=== PATIENT | male | born 1945 | race Caucasian/White ===

== ENCOUNTER 2018-01-04 01:33 | Emergency (ER) | payer MEDICARE, OTHER, SELFPAY ==
[2018-01-04 01:41] VITALS: BP 154/80; PULSE 61; RESP 24; TEMP 36.6; O2SAT 94; BMI 25.0
--- NOTE | 2018-01-04 01:50 | XR_ITS ---
XR ribs RT min 3V w CXR1V HISTORY: Right-sided rib pain following injury ITS.REASON: S/P FALL ORDERING PHYSICIAN: Wang Martínez MD PATIENT AGE: 72 years COMPARISON: None FINDINGS: A frontal view of the chest shows borderline cardiomegaly without failure. No evidence of pneumothorax. Surgical clips are present in the thyroid area. Multiple views of the right ribs were obtained. There are nondisplaced fractures of the right sixth and seventh ribs. There may be a nondisplaced fracture the right ninth rib as there is some cortical lobularity of the ninth rib anterolaterally. IMPRESSION: Nondisplaced fractures of the right sixth and seventh ribs and possibly the ninth rib.
--- NOTE | 2018-01-04 02:55 | HMH.EDGENADL ---
ED Disposition Clinical Impression: Rib fracture Qualifiers: Encounter type: initial encounter Rib fracture type: single rib Fracture type: closed Laterality: right Qualified Code(s): S22.31XA - Fracture of one rib, right side, initial encounter for closed fracture Disposition: Home, Self-Care Condition on Discharge: Good Instructions: DI for Rib Fracture Additional Instructions: call pcp for follow up and recheck if any problems - Critical Care Critical Care Time: No Attestation: On 01/04/18, the high probability of a clinically significant, sudden or life threatening deterioration of the following system(s) required my full and direct attention, intervention and personal management. The time I documented below is in addition to time spent performing reported procedures but includes the following listed in this critical care notation. Medical Decision Making - Medical Records Medical records reviewed: Yes: I reviewed the patient's medical records. Vital Signs: 01/04/18 01:41 Temperature 97.9 F Temperature Source Oral Pulse Rate [Right Brachial] 61 Respiratory Rate 24 Blood Pressure [Right Arm] 154/80 Blood Pressure Mean [Right Arm] 104 Blood Pressure Source [Right Arm] Automatic Cuff Blood Pressure Position [Right Arm] Supine 02 Sat by Pulse Oximetry 94 L Oxygen Delivery Method Room Air - Lab Data Lab results reviewed: Yes: I reviewed the patient's lab results. Orders (Tests/Meds): ORDERS Category Date Time Status XR ribs RT min 3V w CXR1V Stat Exams 01/04/18 01:50 Taken - Radiology Data #1 Image(s): Other (rib) Image Reviewed: Yes I reviewed the patient's radiology image Preliminary Findings: Abnormal - Brice Inquiry Pt receiving controlled substance: No General Adult HPI - General Chief complaint: PAIN Stated complaint: AO 01/04/18 fell injury to right rib cage Time Seen by Provider: 01/04/18 02:55 Mode of Arrival: Family Vehicle Source of Information: Patient, Relative, Medical Record Limitations: No Limitations Description of Symptoms (Recalled from ER Triage Doc. 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 STATES HE HAS HAD A 6 PACK OF BEER AND DROVE SELF TO ED. FELL 1 WEEK AGO AND BROKE HIS NOSE - History of Present Illness HPI narrative: fall tonight with rt rib injury but no abd pain and no neck pain Onset (ago): hour(s) Location: chest Radiation: non-radiation Severity: moderate - Related Data Allergies Allergy/AdvReac Type Severity Reaction Status Date / Time infliximab [From REMICADE] Allergy Unknown Verified 01/04/18 01:49 [facility] History I have reviewed the patient's past medical history: Yes Medical History: Denies:: Cancer, Diabetes Mellitus Type 1, Diabetes Mellitus Type 2, MRSA Amputation: No Fractures: No - Social History Smoking Status: Former smoker Alcohol Intake: current Alcohol Intake Frequency:: a few times a month - Psychiatric History Expresses thoughts of harming self/others: None Suicide Plan Description: No Plan ROS Obtained: Yes All systems reviewed & no additional complaints - Constitutional Constitutional: Denies fever(s) - Eyes Eyes: Denies change in vision - ENT Ears, Nose, Mouth, and Throat: Denies sore throat - Cardiovascular Cardiovascular: Reports chest pain, Reports dyspnea - Respiratory Respiratory: No chest congestion - Gastrointestinal Gastrointestingal: Denies: abdominal pain - Musculoskeletal Musculoskeletal: Denies joint pain, Denies back pain - Integumentary/Breasts Skin/Breast: Denies rash - Neurologic Neurologic: Denies seizure-like activity Physical Exam - General General appearance: alert, in no apparent distress - Head Head exam: normocephalic - Eye Eye exam: Present: PERRL, EOMI - ENT ENT exam: Present: mucous membranes moist - Neck Neck exam: Present: trachea midline - Chest Chest inspection: Present: symmetric chest wall rise, tenderness - Res
--- NOTE | 2018-01-04 02:58 | ED_ITS ---
ED Disposition Clinical Impression: Rib fracture Qualifiers: Encounter type: initial encounter Rib fracture type: single rib Fracture type: closed Laterality: right Qualified Code(s): S22.31XA - Fracture of one rib, right side, initial encounter for closed fracture Disposition: Home, Self-Care Condition on Discharge: Good Instructions: DI for Rib Fracture Additional Instructions: call pcp for follow up and recheck if any problems - Critical Care Critical Care Time: No Attestation: On 01/04/18, the high probability of a clinically significant, sudden or life threatening deterioration of the following system(s) required my full and direct attention, intervention and personal management. The time I documented below is in addition to time spent performing reported procedures but includes the following listed in this critical care notation. Medical Decision Making - Medical Records Medical records reviewed: Yes: I reviewed the patient's medical records. Vital Signs: 01/04/18 01:41 Temperature 97.9 F Temperature Source Oral Pulse Rate [Right Brachial] 61 Respiratory Rate 24 Blood Pressure [Right Arm] 154/80 Blood Pressure Mean [Right Arm] 104 Blood Pressure Source [Right Arm] Automatic Cuff Blood Pressure Position [Right Arm] Supine 02 Sat by Pulse Oximetry 94 L Oxygen Delivery Method Room Air - Lab Data Lab results reviewed: Yes: I reviewed the patient's lab results. Orders (Tests/Meds): ORDERS Category Date Time Status XR ribs RT min 3V w CXR1V Stat Exams 01/04/18 01:50 Taken - Radiology Data #1 Image(s): Other (rib) Image Reviewed: Yes I reviewed the patient's radiology image Preliminary Findings: Abnormal - Brice Inquiry Pt receiving controlled substance: No General Adult HPI - General Chief complaint: PAIN Stated complaint: AO 01/04/18 fell injury to right rib cage Time Seen by Provider: 01/04/18 02:55 Mode of Arrival: Family Vehicle Source of Information: Patient, Relative, Medical Record Limitations: No Limitations Description of Symptoms (Recalled from ER Triage Doc. 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 STATES HE HAS HAD A 6 PACK OF BEER AND DROVE SELF TO ED. FELL 1 WEEK AGO AND BROKE HIS NOSE - History of Present Illness HPI narrative: fall tonight with rt rib injury but no abd pain and no neck pain Onset (ago): hour(s) Location: chest Radiation: non-radiation Severity: moderate - Related Data Allergies Allergy/AdvReac Type Severity Reaction Status Date / Time infliximab [From REMICADE] Allergy Unknown Verified 01/04/18 01:49 [facility] History I have reviewed the patient's past medical history: Yes Medical History: Denies:: Cancer, Diabetes Mellitus Type 1, Diabetes Mellitus Type 2, MRSA Amputation: No Fractures: No - Social History Smoking Status: Former smoker Alcohol Intake: current Alcohol Intake Frequency:: a few times a month - Psychiatric History Expresses thoughts of harming self/others: None Suicide Plan Description: No Plan ROS Obtained: Yes All systems reviewed & no additional complaints - Constitutional Constitutional: Denies fever(s) - Eyes Eyes: Denies change in vision - ENT Ears, Nose, Mouth, and Throat: Denies sore throat - Cardiovascular Cardiovascular: Reports chest pain, Reports dys
[2018-01-04 03:24] VITALS: BP 142/84; PULSE 84; RESP 14; TEMP 37.1; O2SAT 98
== END 2018-01-04 03:32 | disposition home or self-care (01) ==
PROVIDERS: Emergency Provider Emergency Medicine; Family Provider Family Medicine
DX: S22.31XA Fracture of one rib, right side, initial encounter for closed fracture (principal); W19.XXXA Unspecified fall, initial encounter
CPT/HCPCS: 71101; 99281

== ENCOUNTER 2018-01-17 17:40 | Emergency (ER) | payer MEDICARE, OTHER, SELFPAY ==
[2018-01-17 17:55] VITALS: BP 142/94; PULSE 58; RESP 16; TEMP 37.1; O2SAT 96; BMI 25.0
--- NOTE | 2018-01-17 18:44 | PC.NURSE ---
1844: Triage nurse Serene alerted me to patient symptoms, history, exam and vitals. Daughter tells me she isn't sure why they were not kept in ER. Needs transfer back to ER. Report called to [facility] [employer] that triaged pt for decision.
[2018-01-17 18:47] VITALS: BP 189/109; PULSE 63; RESP 18; TEMP 36.8; O2SAT 98; BMI 25.0
[2018-01-17 19:12] VITALS: BP 168/94; PULSE 59; RESP 18; TEMP 36.6; O2SAT 99; BMI 22.4
--- NOTE | 2018-01-17 19:25 | HMH.EDGENADL ---
ED Disposition Condition on Discharge: Fair - Critical Care Critical Care Time: No <Jeff Bonner - Last Filed: 01/17/18 20:15> <Wang Martínez - Last Filed: 01/17/18 22:52> Clinical Impression: Peripheral edema, Elevated d-dimer Hypothyroidism Qualifiers: Hypothyroidism type: unspecified Qualified Code(s): E03.9 - Hypothyroidism, unspecified Anemia Qualifiers: Anemia type: unspecified type Qualified Code(s): D64.9 - Anemia, unspecified Disposition: Home, Self-Care Instructions: DI for Hypothyroidism Additional Instructions: call pcp in am for possible doppler Prescriptions: Levothyroxine Sodium [Synthroid 125mcg (0.125mg) tablet] 125 mcg PO DAILY #20 tab Referrals: Isatu Mosqueda MD [Primary Care Provider] - Attestation: On 01/17/18, the high probability of a clinically significant, sudden or life threatening deterioration of the following system(s) required my full and direct attention, intervention and personal management. The time I documented below is in addition to time spent performing reported procedures but includes the following listed in this critical care notation. Medical Decision Making - Brice Inquiry Pt receiving controlled substance: No - Radiology Data #1 Image(s): Chest Image Reviewed: Yes I reviewed the patient's radiology image Preliminary Findings: Normal/NAD <Jeff Bonner - Last Filed: 01/17/18 20:15> - Lab Data Result diagrams: 01/17/18 19:55 01/17/18 19:55 <Wang Martínez - Last Filed: 01/17/18 22:52> Vital Signs: 01/17/18 17:55 01/17/18 18:47 01/17/18 19:12 Temperature 98.8 F 98.2 F 97.9 F Temperature Source Tympanic Temporal Artery Scan Oral Pulse Rate [Right Radial] 58 L 63 59 L Respiratory Rate 16 18 18 Blood Pressure [Right Arm] 142/94 189/109 168/94 Blood Pressure Mean [Right Arm] 110 135 118 Blood Pressure Source [Right Arm] Automatic Cuff Automatic Cuff Blood Pressure Position [Right Arm] Sitting Supine 02 Sat by Pulse Oximetry 96 98 99 Oxygen Delivery Method Room Air Room Air Room Air - Lab Data Lab Results 01/17/18 19:44: Urine Color Yellow, Urine Appearance Clear, Urine pH 6.5, Ur Specific [place] 1.010, Urine Protein Negative, Urine Glucose (UA) Negative, Urine Ketones Negative, Urine Blood Negative, Urine Nitrate Negative, Urine Bilirubin Negative, Urine Urobilinogen 0.2, Ur Leukocyte Esterase Negative, Urine RBC None, Urine WBC None, Ur Squamous Epith Cells None, Urine Bacteria Trace 01/17/18 19:55: WBC 3.9 L, RBC 3.98 L, Hgb 10.4 L, Hct 36.8 L, MCV 92.4, MCH 26.2 L, MCHC 28.3 L, RDW 16.2, Plt Count 275, MPV 8.0, Neut % (Auto) 65.6, Lymph % (Auto) 21.6, [place] % (Auto) 6.6, Eos % (Auto) 5.4, Baso % (Auto) 0.8, Neut # (Auto) 2.6, Lymph # (Auto) 0.8, [place] # (Auto) 0.3, Eos # (Auto) 0.2, Baso # (Auto) 0.0 01/17/18 19:55: Sodium 137, Potassium 4.0, Chloride 100, Carbon Dioxide 28, Anion Gap 13.0, BUN 10, Creatinine 0.73, Estimated Creat Clear 76, Estimated GFR 106, Est GFR ( Amer) 128, Glucose 68 L, Calcium 8.1 L, Total Bilirubin 0.5, AST 77 H, ALT 43, Alkaline Phosphatase 360 H, Total Protein 7.6, Albumin 3.2 L, Globulin 4.4 H, Albumin/Globulin Ratio 0.7 L 01/17/18 19:55: B-Natriuretic Peptide 57 01/17/18 19:55: D-Dimer 1430 H* 01/17/18 19:55: Lactic Acid 0.6 01/17/18 19:55: TSH 83.59 H, Thyroxine (T4) 1.0 L - Radiology Data #1 no chf or effusions seen (Jeff Bonner) Medical Decision Narrative: 8:15 PM: At shift change, I have discussed the patient with Dr. Martínez, who will assume care of the patient at this time. I have discussed all clinical information including history, physical and diagnostic study results. Preliminary diagnoses based on information available at this point have been recorded by me. Controlled substance administration and critical care statement are also preliminary, as of the time of handoff. (Jeff Bonner) General Adult HPI - General Mode of Arrival: Wheelchair Limitations: No
--- NOTE | 2018-01-17 19:43 | XR_ITS ---
XR chest 2V HISTORY: Bilateral lower extremity swelling and edema ITS.REASON: edema ORDERING PHYSICIAN: Jeff Bonner MD PATIENT AGE: 72 years COMPARISON: 10/16/2013 FINDINGS: The cardiomediastinal silhouette and pulmonary vascularity are within normal limits. There is hyperinflation with attenuation of the peripheral pulmonary vessels consistent with obstructive chronic pulmonary disease. Surgical clips are present in the paratracheal region. There is tortuosity/ectasia of the descending thoracic aorta. Minimally displaced fractures are present involving the right sixth, seventh, and eighth ribs and ninth rib. No evidence of pneumothorax.. IMPRESSION: 1. No acute finding. 2. Subacute right-sided rib fractures. 3. COPD
[2018-01-17 20:14] LABS: Microscopic, Urine URINE MICROSCOPIC (MICROSCOPIC)
[2018-01-17 20:18] LABS: Appearance,Urine CLEAR (Clear); Bilirubin,Urine Negative (Negative); Blood, Urine Negative (Negative); Color,Urine YELLOW (Yellow); Glucose,Urine (UA) Negative (Negative); Ketones,Urine Negative (Negative); Leukocyte Esterase,Urine Negative (Negative); Nitrate,Urine Negative (Negative); PH,Urine 6.5 (5.0-8.5); Protein,Urine Negative (Negative); Urobilinogen,Urine 0.2 EU/dl (0.2)
[2018-01-17 20:22] LABS: Basophils % 0.8 % (0.1-2.0); Eosinophils # 0.2 K/mm3 (0.0-0.4); Eosinophils % 5.4 % (0.1-12.0); Hematocrit 36.8 % (42.0-52.0); Hemoglobin 10.4 g/dL (14.1-18.0); Lymphocytes # 0.8 K/mm3 (0.7-4.5); Lymphocytes % 21.6 K/mm3 (10-50); Mean Corpuscular HGB Conc 28.3 g/dL (31.8-35.4); Mean Corpuscular Hemoglobin 26.2 pg (27.0-31.2); Mean Corpuscular Volume 92.4 fl (80-94); Monocytes # 0.3 K/mm3 (0.1-1.0); Monocytes % 6.6 % (1.7-9.3); Neutrophils # 2.6 K/mm3 (1.8-7.8); Neutrophils % 65.6 % (37.0-80.0); Platelet Count 275 K/mm3 (142-424); Red Blood Count 3.98 M/mm3 (4.60-6.20); Red Cell Distribution Width 16.2 % (11.5-17.5); White Blood Count 3.9 K/mm3 (4.8-10.8)
[2018-01-17 20:51] LABS: Lactic Acid 0.6 mmol/L (0.4-2.0)
[2018-01-17 20:53] LABS: Bacteria,Urine Trace /lpf
[2018-01-17 20:55] LABS: Alanine Aminotransferase 43 U/L (12-78); Albumin Level 3.2 gm/dL (3.4-5.0); Albumin/Globulin Ratio 0.7 (1.1-1.8); Alkaline Phosphatase 360 U/L (46-116); Bilirubin,Total 0.5 mg/dL (0.2-1.0); Blood Urea Nitrogen 10 mg/dL (7-18); Calcium 8.1 mg/dL (8.5-10.1); Carbon Dioxide 28 mmol/L (21.0-32.0); Chloride 100 mmol/L (98-107); Creatinine Clearance Estimated 76 mL/min (0-300); Creatinine,Serum 0.73 mg/dL (0.70-1.30); Estimated Glomerular Filt Rate 106 ml/min (>60); GFR (African American) 128 ML/MIN (>60); Globulin 4.4 gm/dl (1.3-3.2); Glucose 68 mg/dL (74-106); Sodium 137 mmol/L (136-145); Total Protein,Serum 7.6 gm/dL (6.4-8.2)
[2018-01-17 20:56] LABS: D-Dimer 1430 (0-400)
[2018-01-17 20:58] LABS: Aspartate Amino Transferase 77 U/L (15-37)
[2018-01-17 22:27] LABS: Thyroid Stimulating Hormone 83.59 uIU/ml (0.358-3.740)
[2018-01-17 23:21] VITALS: BP 168/94; PULSE 61; RESP 16; TEMP 36.1; O2SAT 97
== END 2018-01-17 23:21 | disposition home or self-care (01) ==
LOC: UTC 18:07 → ER 18:53
PROVIDERS: Emergency Medicine; Emergency Provider Emergency Medicine; Family Provider Family Medicine; PCP Family Medicine
DX: R60.0 Localized edema (principal); E03.9 Hypothyroidism, unspecified; D64.9 Anemia, unspecified; I10 Essential (primary) hypertension; R79.89 Other specified abnormal findings of blood chemistry; Z87.891 Personal history of nicotine dependence; E16.2 Hypoglycemia, unspecified; R06.02 Shortness of breath
CPT/HCPCS: 71046; 80053; 81001; 83605; 83880; 84436; 84443; 85025; 85378; 96372; 99283

== ENCOUNTER → 2018-01-18 14:39 | Outpatient (CLI) | payer MEDICARE, OTHER, SELFPAY ==
--- NOTE | 2018-01-18 14:43 | NVE_ITS ---
Venous Exam Indications: 729.5 Pain in limb. 782.3 Edema. IMPRESSIONS No evidence of deep or superficial vein thrombosis involving the right lower extremity and left lower extremity History: Risk factors: Former tobacco use. Hypertension. Complete lower extremity venous duplex evaluation. Doppler flow study including spectral analysis, color and guerrero scale imaging. Location: Vascular laboratory. Patient status: Outpatient. CRITICAL FINDINGS - Reported to: Dr. Jt Nieto office - Read back and verified. - 01/18/18 - 15:25 - RLE and LLE negative for DVT or SVT Tables: Venous flow and imaging: + +-------+ + Location Overall Flow properties + +-------+ + Right common femoral Patent Normal phasicity; spontaneous; normal augmentation; compressible + +-------+ + Right saphenofemoral junction Patent Compressible + +-------+ + Right profunda femoral Patent Compressible + +-------+ + Right femoral Patent Normal phasicity; spontaneous; normal augmentation; compressible; no reflux + +-------+ + Right greater saphenous Patent Normal phasicity; spontaneous; normal augmentation; compressible + +-------+ + Right popliteal Patent Normal phasicity; spontaneous; normal augmentation; compressible + +-------+ + Right posterior tibial Patent Compressible + +-------+ + Right peroneal Patent Compressible + +-------+ + Right gastrocnemius Patent Compressible + +-------+ + Right soleal Patent Compressible + +-------+ + Left common femoral Patent Normal phasicity; spontaneous; normal augmentation; compressible + +-------+ + Left saphenofemoral junction Patent Compressible + +-------+ + Left profunda femoral Patent Compressible + +-------+ + Left femoral Patent Normal phasicity; spontaneous; normal augmentation; compressible + +-------+ + Left greater saphenous Patent Normal phasicity; spontaneous;
== END ==
PROVIDERS: PCP Family Medicine; Visit Provider Family Medicine
DX: M79.662 Pain in left lower leg (principal); M79.661 Pain in right lower leg; M79.89 Other specified soft tissue disorders
CPT/HCPCS: 93970

== ENCOUNTER 2020-08-10 14:18 | Emergency (ER) | payer MEDICARE, OTHER, SELFPAY ==
[2020-08-10] VITALS (14 sets, daily range): BP systolic 150–214; BP diastolic 91–131; PULSE 63–80; RESP 18–24; TEMP 36.8; O2SAT 98–100; BMI 23.6; BMI 25.8
--- NOTE | 2020-08-10 14:20 | PC.NURSE ---
Arrival to ED @ 1410 with agonal respirations and snoring, pt responding to painful stimuli only, left pupil blown and non reactive. MD intubated pt with 8.0 ETT 28@ lip, 16F OG inserted 60 @ the nare. Bilateral breath sounds and positive color change.
--- NOTE | 2020-08-10 14:20 | PC.NURSE ---
Stroke alert called @ [id number]
--- NOTE | 2020-08-10 14:20 | PC.NURSE ---
Pt to rad
--- NOTE | 2020-08-10 14:22 | CT_ITS ---
PROCEDURE: CT HEAD/BRAIN WO CON CLINICAL INDICATION: unresponsive COMPARISON: No exams were available for comparison TECHNIQUE: Axial images obtained. All CT scans at the facility use one or more dose reduction, viz: automated exposure control, ma/kV adjustment per patient size (including targeted exams where dose is matched to indication, i.e. head), or iterative reconstruction technique. FINDINGS: No midline shift, mass effect, intracranial hemorrhage, hydrocephalus, or extra-axial fluid collection is evident. The calvarium has an unremarkable appearance. No mastoid effusion. No sinus air-fluid level. IMPRESSION: No acute intracranial finding Dictated by: Dr. Gerry Garcia MD 08/10/2020 15:07 Dr. Gerry Garcia MD in [place] 08/10/2020 15:07
--- NOTE | 2020-08-10 14:24 | XR_ITS ---
PROCEDURE: XR CHEST PORTABLE CLINICAL HISTORY: intubation COMPARISON: CR CXR1 CHEST-PORTABLE from 10/16/2013 CR [id number] XR ribs RT min 3V w CXR1V from 01/04/2018 CR CXR2V XR chest 2V from 01/17/[address] HEAD/BRAIN WO CON from 08/10/2020 FINDINGS: The lung hurley are fairly well expanded and appear clear of infiltrate. There is mild cardiomegaly with aortic tortuosity. The pulmonary vascularity is normal and there is no pleural fluid. There is an endotracheal tube in place with the tip in good position approximately 2 cm above the gypsy. There is an NG tube descending the esophagus with the tip in the upper portion of the stomach up against the greater curvature. CT scan of the brain 08/10/2020: Multiple axial scans were obtained from base skull through the vertex and were performed without IV contrast. There is a large acute hemorrhage likely arising in the left thalamus with extension of blood into the occipital horns of the lateral ventricles. There is an apparent additional smaller hemorrhage left cerebellar hemisphere. There is mild mass effect with mild subfalcine left to right shift. The right sylvian fissure is mildly prominent, there is mild extrinsic mass effect on the left sylvian fissure. Cortical sulci are mildly prominent. The bony calvarium appears intact. There is almost complete opacification of the ethmoid sinuses bilaterally secondary to inflammatory change. IMPRESSION: 1. Cardiomegaly, no acute chest pathology noted, satisfactory position of endotracheal tube. 2. Large acute intracerebral hemorrhage likely arising in the left thalamus with extension into the ventricular system. Prominent bilateral and likely acute ethmoid sinusitis Dictated by: Dr. Gerry Garcia MD 08/10/2020 15:15 Dr. Gerry Garcia MD in [place] 08/10/2020 15:15
--- NOTE | 2020-08-10 14:28 | PC.NURSE ---
calling [facility] at this time.
--- NOTE | 2020-08-10 14:30 | PC.NURSE ---
Accompanied rad to CT, no events during transport, pt stable.
--- NOTE | 2020-08-10 14:30 | HMH.EDGENADL ---
ED Disposition Clinical Impression: CVA (cerebrovascular accident due to intracerebral hemorrhage) Qualifiers: Intracerebral hemorrhage etiology: nontraumatic Cerebral hemorrhage location: cerebral hemisphere, unspecified portion Laterality: left Qualified Code(s): I61.2 - Nontraumatic intracerebral hemorrhage in hemisphere, unspecified Disposition: Xfer Short-Term Hosp Condition on Discharge: Critical Referrals: Isatu Mosqueda MD [Primary Care Provider] - - Critical Care Critical Care Time: Yes Attestation: On 08/10/20, the high probability of a clinically significant, sudden or life threatening deterioration of the following system(s) required my full and direct attention, intervention and personal management. The time I documented below is in addition to time spent performing reported procedures but includes the following listed in this critical care notation. Vital system(s) involved:: Central Nervous System, Respiratory Failure My critical care processes included: Assessment & monitoring of V/S, Initial and Re-exams, Data Review/Interpretation, Coordinating Care, Medication Orders and management, Documentation Comment: Patient with obvious neurologic CVA at the left basal ganglia with ventricular involvement. Patient was intubated for airway protection and will be flown to under the care of Dr. Calvert of neurology. Patient has been started on nicardipine drip and will titrate to goal systolic blood pressure 140 mmHg. Patient will be flown to [facility]. Medical Decision Making - Medical Records Medical records reviewed: Yes: I reviewed the patient's medical records. - Brice Inquiry Pt receiving controlled substance: No Vital Signs: 08/10/20 14:32 Pulse Rate [Right Radial] 80 Blood Pressure [Right Arm] 191/131 H Blood Pressure Mean [Right Arm] 151 Blood Pressure Source [Right Arm] Automatic Cuff Blood Pressure Position [Right Arm] Sitting 02 Sat by Pulse Oximetry 100 Oxygen Delivery Method Mechanical Ventilation Oxygen Flow Rate (LPM) 15 Orders (Tests/Meds): ED MEDICATIONS Generic Name Dose Route Start Last Admin Trade Name Freq PRN Reason Stop Dose Admin Nicardipine HCl 25 mg/ Sodium 250 mls @ 50 mls/hr 08/10/20 14:30 Chloride IV 09/09/20 14:29 .Q5H EMIR Protocol ORDERS Category Date Time Status CT head/brain wo con Stat Cat Scan 08/10/20 14:22 Taken XR chest portable Stat Exams 08/10/20 14:24 Ordered Ammonia Stat Lab 08/10/20 14:25 Ordered Complete Blood Count Auto Diff Stat Lab 08/10/20 14:24 Ordered Comprehensive Metabolic Panel Stat Lab 08/10/20 14:24 Ordered Drug Screen,Urine Stat Lab 08/10/20 14:24 Ordered PT/PTT Stat Lab 08/10/20 14:25 Ordered Thyroid Stimulating Hormone Stat Lab 08/10/20 14:24 Ordered Troponin I Q3H Lab 08/10/20 17:30 Ordered Troponin I Q3H Lab 08/10/20 20:30 Ordered Troponin I Stat Lab 08/10/20 14:24 Ordered Urinalysis and Microscopic Stat Lab 08/10/20 14:24 Ordered Arterial Blood Gas Stat RT 08/10/20 14:24 Ordered - CT Data CT Scan: Head Time Received: 14:[address] Reviewed: Yes: I have reviewed the patient's CT results, I discussed the CT results w/the radiologist Findings Narrative: 5 x 4 x 5cm L. basal ganglia hemm. w/ ventricular involvement General Adult HPI - General Stated complaint: uresponsive Time Seen by Provider: 08/10/20 14:18 Mode of Arrival: EMS Source of Information: EMS Limitations: Altered Mental Status - History of Present Illness HPI narrative: Is a 74-year-old male comes in by EMS after being found unresponsive by family members at home. Family members report they had went out to the store and upon arrival back to their house and found patient in doorway unresponsive but breathing. Exact timing unknown. Further subjective assessment limited as such. Accu-Chek 128 on scene by EMS. Patient was snoring respirations on arrival of EMS with hypertension systolic around 200.
--- NOTE | 2020-08-10 14:31 | PC.NURSE ---
Pt returning from Rad.
--- NOTE | 2020-08-10 14:33 | PC.NURSE ---
Dr Leal speaking with Dr Calvert at this time.
--- NOTE | 2020-08-10 14:34 | PC.NURSE ---
Calling [facility], they are checking flight status and calling us back.
--- NOTE | 2020-08-10 14:36 | PC.NURSE ---
Dr Calvert at accepted pt.
--- NOTE | 2020-08-10 14:37 | PC.NURSE ---
ANITA calling and speaking with Dr Leal.
--- NOTE | 2020-08-10 14:45 | PC.NURSE ---
tube 26 at the teeth, size 8 tube used.
--- NOTE | 2020-08-10 14:48 | PC.NURSE ---
Addendum entered by Brianna Munoz, EMT 08/10/20 14:51: 20 min ETA Original Note: [place] [facility] accepted.
--- NOTE | 2020-08-10 14:50 | PC.NURSE ---
Pt intubated with size 8 ET tube, 26 @lip. Took pt to CT scan then placed on vent with settings of AC 450,18,5 and 60%. Pt tolerating settings well with a saturation of 100% and end tidal of 39. Sputum sample taken and walked to the lab as well as an ABG
--- NOTE | 2020-08-10 14:51 | PC.NURSE ---
Dr Leal speaking with pts daughter at this time.
[2020-08-10 14:52] LABS: Basophils % 0.3 % (0.1-2.0); Eosinophils # 0.1 K/mm3 (0.0-0.4); Hematocrit 45.9 % (42.0-52.0); Hemoglobin 15.4 g/dL (14.1-18.0); Lymphocytes # 0.6 K/mm3 (0.7-4.5); Lymphocytes % 7.6 % (10-50); Mean Corpuscular HGB Conc 33.5 g/dL (31.8-35.4); Mean Corpuscular Hemoglobin 33.2 pg (27.0-31.2); Mean Corpuscular Volume 99.3 fl (80-94); Mean Platelet Volume 7.6 fl (7.4-10.4); Monocytes # 0.3 K/mm3 (0.1-1.0); Monocytes % 4.6 % (1.7-9.3); Neutrophils # 6.2 K/mm3 (1.8-7.8); Neutrophils % 86.5 % (37.0-80.0); Platelet Count 168 K/mm3 (142-424); Red Blood Count 4.62 M/mm3 (4.60-6.20); Red Cell Distribution Width 13.3 % (11.5-17.5); White Blood Count 7.2 K/mm3 (4.8-10.8)
--- NOTE | 2020-08-10 14:53 | PC.NURSE ---
RT at bedside
[2020-08-10 14:54] LABS: MANUAL DIFFERENTIAL MANUAL DIFFERENTIAL (MANUAL DIFF)
[2020-08-10 14:55] LABS: Chloride 101 mmol/L (98-107); Potassium 3.8 mmoL/L (3.5-5.1); Sodium 136 mmol/L (136-145)
--- NOTE | 2020-08-10 14:56 | PC.NURSE ---
13 min ETA for [facility]
[2020-08-10 14:58] LABS: Microscopic, Urine URINE MICROSCOPIC (MICROSCOPIC)
[2020-08-10 14:58] LABS: Alanine Aminotransferase 29 U/L (12-78); Albumin Level 4.2 g/dl (3.5-5.0); Albumin/Globulin Ratio 1.2 (1.1-1.8); Alkaline Phosphatase 213 U/L (38-126); Anion Gap 10.8 mEq/L (5-15); Aspartate Amino Transferase 47 U/L (17-59); Bilirubin,Total 1.3 mg/dl (0.2-1.3); Blood Urea Nitrogen 15 mg/dl (9-20); Carbon Dioxide 28 mmol/L (22.0-30.0); Creatinine Clearance Estimated 74 mL/min (50-200); Estimated Glomerular Filt Rate 163 ml/min (>60); GFR (African American) 197 ML/MIN (>60); Globulin 3.5 g/dL (1.3-3.2); Glucose 125 mg/dl (74-100); Total Protein,Serum 7.7 g/dl (6.3-8.2)
[2020-08-10 14:59] LABS: Calcium 8.7 mg/dl (8.4-10.2)
--- NOTE | 2020-08-10 15:00 | PC.NURSE ---
Report given to Francine Gustafson at ED
[2020-08-10 15:01] LABS: Appearance,Urine CLEAR (Clear); Bilirubin,Urine Negative (Negative); Blood, Urine 1+ (Negative); Color,Urine YELLOW (Yellow); Glucose,Urine (UA) Negative (Negative); Ketones,Urine Negative (Negative); Leukocyte Esterase,Urine Negative (Negative); Nitrate,Urine Negative (Negative); Protein,Urine TRACE (Negative); Urobilinogen,Urine 0.2 EU/dl (0.2)
[2020-08-10 15:02] LABS: ABG HCO3 25.5 mmhg (22.0-26.0); ABG Oxygen Saturation 99 % (90-100); ABG PCO2 46.6 mmhg (35.0-45.0); ABG PH 7.36 mmol/L (7.35-7.45); ABG PO2 123.7 mmhg (80-100); ABG TCO2 26.9 mmhg (23-27)
[2020-08-10 15:04] LABS: Allen's Test Patient Unable; Oxygen 60 %; PEEP 5; Source Left Radial; Tidal Volume 450; Vent Rate 18
[2020-08-10 15:06] LABS: Eosinophils % 1 % (0-3); Lymphocytes % 5 % (10-50); Monocytes % 4 % (2-9); Neutrophils % 89 % (42-76); Total Cells Counted 100
[2020-08-10 15:07] LABS: Activated Partial Thrombo Time 27.4 seconds (23.6-34.0); INR 1.04 (0.9-1.1); Platelet Estimate Normal; Prothrombin Time 11.5 seconds (9.4-11.8); RBC Morphology Normal
--- NOTE | 2020-08-10 15:07 | PC.NURSE ---
[facility] landing at this time.
--- NOTE | 2020-08-10 15:10 | PC.NURSE ---
Daughter at beside
[2020-08-10 15:11] LABS: Troponin I 0.05 ng/ml (0.00-0.034)
[2020-08-10 15:13] LABS: Amphetamine/Metha Screen,Urine Negative ng/ml (<1000); Barbiturates Screen,Urine Negative ng/ml (<200)
[2020-08-10 15:14] LABS: Benzodiazepines Screen,Urine Negative ng/ml (<200)
--- NOTE | 2020-08-10 15:14 | PC.NURSE ---
[facility] here to transport pt, report given
[2020-08-10 15:15] LABS: Cannabinoid Screen,Urine Negative ng/ml (<50); Cocaine Screen,Urine Negative ng/ml (<300)
[2020-08-10 15:16] LABS: Methadone Screen,Urine Negative ng/ml (<300); Opiate Screen,Urine Negative ng/ml (<300)
[2020-08-10 15:17] LABS: Phencyclidine Screen,Urine Negative ng/ml (<25)
[2020-08-10 15:29] LABS: Thyroid Stimulating Hormone 1.13 uIU/mL (0.465-4.68)
--- NOTE | 2020-08-10 15:34 | PC.NURSE ---
[facility] leaving with pt at this time.
--- NOTE | 2020-08-10 15:50 | PC.NURSE ---
Stroke alert called
[2020-08-10 16:13] LABS: Squamous Epithelial Cell,Urine Occasional #/hpf (0-5)
== END 2020-08-10 15:35 | disposition short-term general hospital (02) ==
PROVIDERS: Emergency Provider Emergency Medicine; PCP Family Medicine
DX: I61.2 Nontraumatic intracerebral hemorrhage in hemisphere, unspecified (principal); I10 Essential (primary) hypertension; K21.9 Gastro-esophageal reflux disease without esophagitis; E03.9 Hypothyroidism, unspecified; Z87.891 Personal history of nicotine dependence; Z79.899 Other long term (current) drug therapy
CPT/HCPCS: 31500; 70450; 71045; 80053; 80305; 81001; 82803; 84443; 84484; 85007; 85025; 85610; 85730; 87070; 87205; 96365; 96367; 96375; 99285; J0330